=== PATIENT | male | born 1990 | race Hispanic/Latino ===

== ENCOUNTER 2016-12-04 16:10 | Emergency (ER) | payer BC ==
--- NOTE | 2016-12-04 16:31 | EKG ---
[address] [address] Measurements Intervals [place] Rate: 87 P: 82 KS: 164 QRS: 95 QRSD: 96 T: 49 QT: 347 QTc: 392 Interpretive Statements SINUS RHYTHM BORDERLINE RIGHT AXIS DEVIATION ST ELEVATION CONSISTENT WITH PERICARDITIS, OR EARLY REPOLARIZATION NONSPECIFIC ST & T-WAVE ABNORMALITY No previous ECG available for comparison Electronically Signed On 12-05-16 13:22:48 MDT by Hany Haider [id number]
--- NOTE | 2016-12-04 16:32 | PDOC ---
Dyspnea HPI - General Chief Complaint: Dyspnea Stated Complaint: DYSPNEA Date Seen by Provider: 12/04/16 Time Seen by Provider: 16:28 Source: POSITIVE: Patient Exam Limitations: POSITIVE: No limitations Nurse's Notes Reviewed & Considered: Yes - History of Present Illness Initial Comments: Amadou is a 26-year-old male who presents to the emergency department with coughing and shortness of breath. Patient reports that he has been sick for approximately 2 weeks. He initially had fevers and chills. He was seen and started on azithromycin and albuterol. He said is not improving was reevaluated started on Keflex and dexamethasone. Patient reported today he was getting worse. He feels short of breath. He is coughing. He does describe anterior chest pain. Worse with coughing. No relieving factors. Patient has traveled to and from [place] in [place]. Patient denies pain in his lower extremities. No abdominal pain. No nausea no vomiting. - Patient Home Medications Home Medications: Home Medications Cephalexin 500 mg PO Q12H 12/04/16 Dexamethasone 2 mg PO DAILY 12/04/16 Diclofenac Sodium 50 mg PO DAILY 12/04/16 Levofloxacin 750 mg PO DAILY 4 Days 12/04/16 PE/PE & Pyrilamine Tannate/Cpm [Phena-S 12 Suspension] 473 ml PO PRN 12/04/16 Prednisone 60 mg PO DAILY 4 Days 12/04/16 - Patient Allergies Allergies/Adverse Reactions: Allergies Allergy/AdvReac Type Severity Reaction Status Date / Time No Known Allergies Allergy Verified 12/04/16 16:21 Past Medical History - heen HEENT History: Denies History Cardiovascular History: Denies History Respiratory History: Other (please comment) (Remote history of asthma as a child ) Gastrointestinal History: Denies History Genitourinary History: Denies History Endocrine History: Denies History Musculoskeletal History: Denies History Neurological History: Denies History Blood Disorders: Denies History Psychiatric History: Denies History Male Reproductive History: Denies History Tobacco Use: Never Smoker Alcohol Use: None Substance Use Type: None Significant Family History: No pertinent family hx Past Medical History Reviewed: Reviewed - Changes Made ROS - Limitations ROS Limitations: No Limitations Constitution: REPORTS: Other (Prior fevers and chills 2 weeks ago) Cardiovascular: REPORTS: Chest Pain Respiratory: REPORTS: Cough Non Productive, Hurts To Breathe, Shortness Of Breath, Wheezing Neurological: REPORTS: Denies Neuro Symptoms Gastrointestinal: REPORTS: Denies GI Symptoms Endocrine: REPORTS: Denies Symptoms Musculoskeletal: REPORTS: Denies MS Symptoms Genitourinary: REPORTS: Denies Symptoms Eyes: REPORTS: Denies Symptoms ENT: REPORTS: Denies Symptoms Skin: REPORTS: Denies Skin Symptoms Lympathic: REPORTS: Denies Lympathic Symptoms Immunologic: POSITIVE: Denies Symptoms Psychiatric: POSITIVE: Denies Psych Symptoms Dyspnea Physical Exam - General Appearance General Appearance: REPORTS: Alert, No Acute Distress, No Evidence of Trauma - HEENT HEENT: POSITIVE: Head Inspection Nml, Eyes Inspection Nml, Ears Inspection Nml, Nose Inspection Nml, Oral/Dental Inspect. Nml, Pharynx Inspect. Nml - Neck Neck: REPORTS: Normal Inspection - Respiratory Respiratory: REPORTS: Wheezes, Other (Scattered expiratory wheezes throughout.) - Cardiovascular Cardiovascular: REPORTS: Tachycardia - Abdomen Abdomen: Soft: (All Quadrants), Normal Bowel Sounds: (All Quadrants), Denies Tenderness: (All Quadrants), No Splenomegaly: (All Quadrants), No Hepatomegaly: (All Quadrants) - Skin Skin: REPORTS: Intact, Warm, Dry - Extremities Extremity: Non-Tender: (All Extremities), Normal ROM: (All Extremities), Normal Inspection: (All Extremities) - Neurological / Psychological Neurological: POSITIVE: Affect Apporpriate, Oriented X3 Dyspnea Progress - Results Reviewed by me Xrays/CTs/US Reviewed by me: Yes Lab Results Reviewed: Yes Lab Results:: Laboratory Results 12/04/16 Range/Units 16:55 WBC 18.14 H (4.8-10.8) 10^3/uL RBC 5.86 (4.70-6.10) 10^6/uL Hgb 16.8 (14.0-18.0) g/dL Hct 48.4 (42.0-52.0) % MCV 82.6 (80-90) FL MCH 28.7 (27-31) PG MCHC 34.7 (33-37) g/dL RDW Std Deviation 40.9 (39-50) fL RDW Coeff of Adriel 13.5 (11.5-14.5) % Plt Count 373 H (140-350) 10*3/uL MPV 10.2 (7.4-12.2) FL Immature Gran % (Auto) 0.3 (0-5) % Neut % (Auto) 64.7 (50-80) % Lymph % (Auto) 21.7 (10-50) % [place] % (Auto) 6.9 (5-15) % Eos % (Auto) 6.0 (0-8) % Baso % (Auto) 0.4 (0-1) % Immature Gran # (Auto) 0.05 10*3/UL Neut # (Auto) 11.74 10*3/UL Lymph # (Auto) 3.93 10*3/uL [place] # (Auto) 1.26 H (0.3-0.8) 10*3/UL Eos # (Auto) 1.09 10*3/UL Baso # (Auto) 0.07 10*3/UL WBC Morphology Comment Normal morphology (NORM) Plt Morphology Comment Normal morphology (NORM) RBC Morph Comment Normal morphology (NORM) D-Dimer 0.60 H (0.00-0.59) mg/L Sodium 138 (135-145) meq/L Potassium 3.8 (3.8-5.2) meq/L Chloride 102 (98-112) meq/L Carbon Dioxide 21 L (23-33) meq/L Anion Gap 15 (5-20) BUN 16 (7-22) mg/dL Creatinine 0.9 (0.70-1.50) mg/dL Estimated GFR > 60 (>60 ml/min/1.73m(2)) BUN/Creatinine Ratio 17.77 (6-20) Glucose 89 (78-110) mg/dL Calculated Osmolality 285.0 (267-292) mOsm/kg Calcium 9.5 (8.7-10.7) mg/dL Troponin I < 0.012 (< 0.040) ng/mL EKG Interpreted/Reviewed By Me:: Yes (diffuse ST elevation. Early re-pole versus pericarditis.) - Patient's Progress MDM / ED Course: Amadou is a 26-year-old male with a remote history of asthma who presents to the emergency department with worsening shortness of breath. His vital signs are notable for tachycardia and examination him strict auditory wheezes. Differential diagnosis includes but is not limited to viral syndrome, pneumonia , pulmonary embolism, bronchitis. Patient's EKG did demonstrate some findings to suggest possible pericarditis or early repolarization. Troponin was negative for any cardiac injury. Bedside ultrasound performed by myself demonstrates no evidence of pericardial effusion or finds to suggest cardiac tamponade. Initial chest x-ray does not demonstrate evidence of infiltrate. However, patient's d-dimer is elevated. Subsequently, a CT scan of chest was obtained which demonstrates no evidence of pulmonary embolism or other radiographic signs to suggest pneumonia. Patient's laboratory studies did demonstrate elevation of white blood cell count. 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 Patient was given a nebulizer and on reevaluation was improving. During his course he started to decline again was given a second nebulized albuterol. On reevaluation he is feeling better. I suspect that this is either reactive airway disease versus an underlying bacterial infection was not clearing given the duration of symptoms. Patient was started on Levaquin here and will send home with albuterol and prednisone. Patient Care Time - Estimated PCT Patient Care Time (In Minutes): 45 Vital Signs - Recent Vital Signs Vital Signs: Vital Signs (Last 8 hours) Temp Pulse Pulse Resp BP BP Pulse Ox 12/04/16 19:55 97.7 F 94 18 129/74 94 12/04/16 18:30 97.7 F 94 18 130/89 94 12/04/16 16:15 97.7 F 104 H 20 136/83 93 - VS Reviewed Vital Signs Reviewed: Yes Discharge Clinical Impression: Cough Discharge Disposition: Discharged to Home Condition: Fair Prescriptions / Orders: Levofloxacin 750 mg PO DAILY 4 Days Prednisone 60 mg PO DAILY 4 Days Patient Instructions Given at Discharge: Upper Respiratory Infection (ED), Reactive Airways Disease (ED) Additional Instructions: Please take medications as prescribed. It is important that you find a doctor when you get home for re-evaluation. Please stop Keflex and Dexamethasone. Return sooner for any worsening symptoms. Follow Up With: NONE,NONE [Primary Care Provider] -
[2016-12-04] MEDS: NORMAL SALINE 10 ML SYRINGE FLUSH IVP PRN ×3 (16:42→19:23)
[2016-12-04] MEDS ORDERED: IPRATROPIUM/ALBUTEROL SULFATE 3 ML NEB NEB ONE ×2 (16:48→19:10)
[2016-12-04 17:04] LABS: BASOPHILS # (AUTO) 0.07 10*3/UL; BASOPHILS % (AUTO) 0.4 % (0-1); EOSINOPHILS # (AUTO) 1.09 10*3/UL; HEMATOCRIT 48.4 % (42.0-52.0); HEMOGLOBIN 16.8 g/dL (14.0-18.0); LYMPHOCYTES # (AUTO) 3.93 10*3/uL; MEAN CORPUSCULAR HEMOGLOBIN 28.7 PG (27-31); MEAN CORPUSCULAR HGB CONC 34.7 g/dL (33-37); MEAN PLATELET VOLUME 10.2 FL (7.4-12.2); MONOCYTES # (AUTO) 1.26 10*3/UL (0.3-0.8); MONOCYTES % (AUTO) 6.9 % (5-15); NEUTROPHILS # (AUTO) 11.74 10*3/UL; NEUTROPHILS % (AUTO) 64.7 % (50-80); RED BLOOD COUNT 5.86 10^6/uL (4.70-6.10)
[2016-12-04 17:05] LABS: PLATELET MORPHOLOGY COMMENT NORMAL MORPHOLOGY (NORM); RBC MORPHOLOGY COMMENT NORMAL MORPHOLOGY (NORM); WBC MORPHOLOGY COMMENT NORMAL MORPHOLOGY (NORM)
[2016-12-04 17:19] LABS: BLOOD UREA NITROGEN 16 mg/dL (7-22); BUN/CREATININE RATIO 17.77 (6-20); CALCIUM 9.5 mg/dL (8.7-10.7); EST GLOMERULAR FILTRATION > 60 (>60 ml/min/1.73m(2))
--- NOTE | 2016-12-04 17:47 | DI ---
PA /LATERAL CHEST X-RAY, 12/04/2016 4:19 PM : Clinical History: Cough Previous Exam: None at this facility. There is no acute soft tissue or bony abnormality. Heart size is normal. Lungs are clear. Mediastinal structures are normal. There are no pulmonary nodules. IMPRESSION: Normal chest x-ray.
[2016-12-04] MEDS ORDERED: LORazepam 2 MG/1 ML VIAL IVP ONE (17:53)
[2016-12-04 18:18] VITALS: TEMP 97.7
--- NOTE | 2016-12-04 19:07 | DI ---
CT CTA CHEST NONCORONARY W/WO,12/04/2016 5:41 PM: Clinical History: Shortness of breath, chest pain and elevated d-dimer. Previous Exam: None at this facility. Findings: Multiple helically acquired CT images are obtained through the chest following the intravenous admini stration of 75 mL of Omnipaque 350, and demonstrate no evidence of filling defect or truncation of th e pulmonary arteries to suggest pulmonary embolism. There is no infiltrate nor effusion. There is no mediastinal lymphadenopathy. The thyroid is unremark able. The upper abdomen is also unremarkable. Impression: Normal pulmonary embolism.
[2016-12-04] MEDS ORDERED: methylPREDNISolone 125 MG/2 ML VIAL IVP ONE (19:10)
[2016-12-04] MEDS ORDERED: ALBUTEROL SULFATE 8.5 GM HFA INHALER INH SCH (19:45)
[2016-12-04 20:09] VITALS: RESP 18
== END 2016-12-04 19:55 | disposition home or self-care (01) ==
LOC: ER 16:10
DX: R05 Cough (principal); R06.2 Wheezing
CPT/HCPCS: 71020; 71275; 80048; 84484; 85025; 85379; 86738; 93005; 93010; 94640; 96374; 96375; 99284 ×2; J2930; J7620; J2060